=== PATIENT | female | born 1980 | race African-American/Black ===

== ENCOUNTER → 2020-01-23 | Emergency (ER) | payer MEDICAID ==
[~2020-01-23] VITALS: Ht 152.4 cm; Wt 81.6 kg
[~2020-01-23] MED LIST: POTASSIUM CHL 20 Meq TABLET PO ONE; cloNIDine HCL 0.1 MG TAB ONE; cloNIDine HCL 0.1 MG TAB PO ONE
[2020-01-23 14:46] LABS: Basophils # (auto) 0 10 ^3/uL (0-0.2); Basophils % (auto) 0.2 % (0.0-2.0); Eosinophils # (auto) 0.1 10 ^3/uL (0-0.8); Eosinophils % (auto) 1.3 % (0.0-7.0); Hematocrit 41.3 % (36.0-46.0); Lymphocytes # (auto) 1.9 10 ^3/uL (0.4-5.4); Lymphocytes % (auto) 34.2 % (10.0-50.0); Mean Corpuscular Hemoglobin 33.8 pg (28.0-32.0); Mean Corpuscular Hgb Conc. 33.9 g/dL (32.0-36.0); Mean Corpuscular Volume 99.8 fL (80.0-100.0); Monocytes # (auto) 0.4 10 ^3/uL (0-1.3); Monocytes % (auto) 7.9 % (0.0-12.0); Neutrophils # (auto) 3.2 10 ^3/uL (1.6-8.6); Neutrophils % (auto) 56.4 % (37.0-80.0); Platelet Count (auto) 312 10^3/uL (140-450); Red Blood Cells 4.14 10^6/uL (4.0-5.20); White Blood Cell 5.7 10^3/uL (4.4-10.8)
[2020-01-23 14:57] LABS: INR 0.97 (0.9-1.15); Partial Thromboplastin Time 26.6 sec (23.64-32.05)
[2020-01-23 15:05] LABS: Alanine Aminotransferase 22 U/L (13-56); Albumin 4.2 g/dL (3.4-5.0); Anion Gap 9 (5-15); Aspartate Aminotransferase 18 U/L (15-37); BUN/Creatinine Ratio 16.3; Blood Urea Nitrogen 14 mg/dL (7-18); Carbon Dioxide 23 mmol/L (21-32); Chloride 106 mmol/L (98-107); GFR African American 95 mL/min; GFR Non-African American 79 mL/min; Glucose 92 mg/dL (74-106); Magnesium 2.2 mg/dL (1.6-2.6); Potassium 3.1 mmol/L (3.5-5.1); Sodium 138 mmol/L (136-145)
[2020-01-23 15:10] LABS: Alkaline Phosphatase 99 U/L (45-117); Bilirubin, Total 0.6 mg/dL (0.2-1.0); Total Protein 9.4 g/dL (6.4-8.2)
[2020-01-23 17:56] LABS: Urine Bacteria NONE SEEN /hpf (None Seen); Urine Blood 1+ /uL (Negative); Urine Mucus FEW (None Seen); Urine Specific Gravity 1.031 (1.001-1.035); Urine WBC 1 /hpf (0 - 5)
[2020-01-23 19:04] VITALS: BP 139/94
== END | disposition home or self-care (01) ==
LOC: ER 12:56
DX: J20.9 Acute bronchitis, unspecified (principal); I10 Essential (primary) hypertension; F41.9 Anxiety disorder, unspecified; E87.6 Hypokalemia
CPT/HCPCS: 36415; 71045; 80053; 81001; 83605; 83735; 84484; 84702; 85025; 85610; 85730; 87040; 93005

== ENCOUNTER 2021-02-12 20:02 | Emergency (ER) | payer MEDICAID ==
[~2021-02-12] VITALS: Ht 152.4 cm; Wt 77.1 kg
[2021-02-12 22:54] LABS: Basophils # (auto) 0 10 ^3/uL (0-0.2); Basophils % (auto) 0.8 % (0.0-2.0); Eosinophils # (auto) 0 10 ^3/uL (0-0.8); Hematocrit 41.5 % (36.0-46.0); Hemoglobin 14.4 g/dL (12.2-16.2); Lymphocytes # (auto) 1.5 10 ^3/uL (0.4-5.4); Lymphocytes % (auto) 26.5 % (10.0-50.0); Mean Corpuscular Hemoglobin 33.9 pg (28.0-32.0); Mean Corpuscular Hgb Conc. 34.8 g/dL (32.0-36.0); Mean Corpuscular Volume 97.3 fL (80.0-100.0); Monocytes # (auto) 0.5 10 ^3/uL (0-1.3); Monocytes % (auto) 9.8 % (0.0-12.0); Neutrophils # (auto) 3.4 10 ^3/uL (1.6-8.6); Neutrophils % (auto) 62.9 % (37.0-80.0); Nucleated Red Blood Cells % 0.1 %; Red Blood Cells 4.26 10^6/uL (4.0-5.20); Red Cell Distribution Width 14.1 % (11.8-14.3); White Blood Cell 5.5 10^3/uL (4.4-10.8)
[2021-02-12 23:04] LABS: INR 0.94 (0.9-1.15)
[2021-02-12 23:07] LABS: Albumin 3.4 g/dL (3.4-5.0); Calcium 9.1 mg/dL (8.5-10.1)
[2021-02-12 23:10] LABS: BUN/Creatinine Ratio 14.9; Bilirubin, Total 0.4 mg/dL (0.2-1.0); Total Protein 8.8 g/dL (6.4-8.2)
[2021-02-13 00:28] VITALS: BP 158/99
== END 2021-02-13 03:26 | disposition home or self-care (01) ==
LOC: ER 20:02
DX: O02.1 Missed abortion (principal); Z88.8 Allergy status to other drugs, medicaments and biological substances; Z3A.08 8 weeks gestation of pregnancy
CPT/HCPCS: 36415; 76801; 80053; 84702; 85025; 85610

== ENCOUNTER 2025-03-16 06:13 | Inpatient (IN) | payer MEDICAID ==
[~2025-03-16] VITALS: Ht 152.4 cm; Wt 78.1 kg
--- NOTE | 2025-03-16 06:29 | ECG ---
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
--- NOTE | 2025-03-16 06:37 | ED.PDOC ---
History of Present Illness HPI Comments 44-year-old female presents to the ER with prior medical history of hypertension and a chief complaint of chest pain. Patient reports that the chest pain is job related associated with shortness a breath, CP, family stress. 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 Patient notes a not taking her hypertension medication but instead, is drinking tea. Social history of occasional alcohol use. Denies chills, fever, N/V/D, SOB, CP. No other associated symptoms, modifiers, recent injuries or sick contacts present at this time. Chief Complaint: Chest Pain Time Seen by MD: 06:30 Primary Care Provider: [facility] Reviewed Notes: Nurses Notes, Medications, Allergies Allergies: Coded Allergies: Acetaminophen (Verified Allergy, Unknown, 01/20/15) Hydrocodone (Verified Allergy, Unknown, 01/20/15) Information Source: Patient Mode of Arrival: Ambulatory Severity: Moderate Timing: Came on: Gradually Duration: Since onset Prehospital treatment: None Past Medical History PAST MEDICAL HISTORY: HTN (Not Taking medications but is drinking herbal tea ) Surgical History: Denies all surgeries HEAD RIGGER History: No Pertinent HEAD RIGGER History Family History Family History: Reviewed,noncontributory to illness, Unknown Social History Smoker: Non-Smoker Alcohol: Denies ETOH Use Drugs: Denies Drug Use Lives In: Home Constitutional: reports: others (Stress); denies: chills, diaphoresis, fatigue, fever, malaise, sweats, weakness EENTM: denies: blurred vision, double vision, ear bleeding, ear discharge, ear drainage, ear pain, ear ringing, eye pain, eye redness, hearing loss, mouth pain, mouth swelling, nasal discharge, nose bleeding, nose congestion, nose p ain, photophobia, tearing, throat pain, throat swelling, voice changes, others Respiratory: reports: shortness of breath; denies: cough, hemoptysis, orthopnea, SOB at rest, SOB with excertion, stridor, wheezing, others Cardiovascular: reports: chest pain; denies: dizzy spells, diaphoresis, Dyspnea on exertion, edema, irregular heart beat, left arm pain, lightheadedness, palpitations, PND, syncope, others Gastrointestinal: denies: abdomen distended, abdominal pain, blood streaked bowels, constipated, diarrhea, dysphagia, difficulty swallowing, hematemesis, melena, nausea, poor appetite, poor fluid intake, rectal bleeding, rectal pain, vomiting, others Genitourinary: denies: abnormal vagina bleeding, burning, dyspareunia, dysuria, flank pain, frequency, hematuria, incontinence, pain, , vagina discharge, urgency, others Neurological: denies: dizziness, fainting, headache, left sided numbness, left sided weakness, numbness, paresthesia, pre-existing deficit, right sided numbness, right sided weakness, seizure, speech problems, tingling, tremors, weakness, others Musculoskeletal: denies: back pain, gout, joint pain, joint swelling, muscle pain, muscle stiffness, neck pain, others Integumetry: denies: bruises, change in color, change in hair/nails, dryness, laceration, lesions, lumps, rash, wounds, others Allergic/Immunocompromised: denies: Difficulty Healing, Frequent Infections, Hives, Itching, others Hematologic/Lymphatic: denies: anemia, blood clots, easy bleeding, easy bruising, swollen glands, others Endocrine: denies: excessive hunger, excessive sweating, excessive thirst, excessive urination, flushing, intolerance to cold, intolerance to heat, unexplained weight gain, unexplained weight loss, others Psychiatric: denies: anxiety, bipolar disorder, depression, hopeless, panic disorder, schizophrenia, sleepless, suicidal, others All Other Systems: Reviewed and Negative Physical Exam General Appearance: Moderate Distress, Normal HEENT: Normal ENT Inspection, Pharynx Normal, TMs Normal Neck: Full Range of Motion, Non-Tender, Normal, Normal Inspection Respiratory: Chest Non-Tender, Lungs Clear, No Accessory Muscle Use, No Respiratory Distress, Normal Breath Sounds Cardiovascular: No Edema, No JVD, No Murmur, No Gallop, Normal Peripheral Pulses, Tachycardia Breast Exam: Deferred Gastrointestinal: No Organomegaly, Non Tender, No Pulsatile Mass, Normal Bowel Sounds, Soft Genitalia: Deferred Pelvic: Deferred Rectal: Deferred Extremities: No calf tenderness, Normal capillary refill, Normal inspection, Normal range of motion, Non-tender, No pedal edema Musculoskeletal : Apperance: Normal Neurologic: Alert, surveillance specialist II-XII nml as Tested, No Motor Deficits, Normal Affect, Normal Mood, No Sensory Deficits Cerebellar Function: Normal Reflexes: Normal Skin: Dry, Normal Color, Warm Peripheral Pulses: 3+ Radial (R), 3+ Radial (L) Lymphatic: No Adenopathy Was a procedure done? Was a procedure done?: No Differential Dx Considerations may include: Anemia Electrolyte imbalance X-Ray, Labs, Meds, VS Vital Signs Date Time Temp Pulse Resp B/P (MAP) Pulse Ox O2 Delivery O2 Flow Rate FiO2 03/16/25 06:24 100 03/16/25 06:16 98.4 110 18 192/112 97 98.4 Patient alert. Complaining of having stress at work. Vitals stable. Answering questions. She does not take any medications. Blood pressure elevated. She was supposed to take blood pressure medication but has not been. No leg swelling. No shortness a breath. EKG reviewed does not show any acute process. Explained to the patient. Continue monitoring. Time of 1ST Reevaluation: 07:00 Reevaluation 1ST: Unchanged Patient Education/Counseling: Diagnosis, Treatment, Prognosis Family Education/Counseling: No Family Present SEPSIS Sepsis Screen Date sepsis recognized/suspect: Mar 16, 2025 Time Sepsis recognized/suspect: 624 Recent Procedure: No On Antibiotic Therapy: No Respiratory Rate >20: No Heart Rate >90: No Temp<36 C (96.8 F) or >38.3 C: No SBP <90 or MAP <65 mmHG: No New Acute Mental Status Change: No Is the patient on CPAP, BIPAP,: No Physician Orders Complete Blood Count (03/16/25 06:30) Urinalysis (03/16/25 06:30) Troponin-I Hs (03/16/25 06:30) Troponin-I Hs (03/16/25 07:30) Troponin-I Hs (03/16/25 09:30) Basic Metabolic Panel (03/16/25 06:30) Vital Signs Date Time Temp Pulse Resp B/P (MAP) Pulse Ox O2 Delivery O2 Flow Rate FiO2 03/16/25 06:24 100 03/16/25 06:16 98.4 110 18 192/112 97 98.4 Departure 1 Departure Time of Disposition: 06:43 Impression: Primary Impression: Hypertensive emergency Additional Impression: Chest pain of unknown etiology Disposition: ADMITTED INPATIENT Admit to: Med Surg Condition: Guarded Critical Care Note Critical Care Time?: Yes (90 min-critical care time only) Stability Stability form required: No Heart Score Heart Score: Heart Score Response (Comments) Value History Slightly Suspicious 0 EKG Normal 0 Age <45 0 Risk Factors 1 or 2 risk factors 1 Troponin Normal limit 0 Total 1 I personally scribed for ED CORNELIUS MD ([email or web address]) on 03/16/25 at 06:37. Electronically submitted by Andrew Botello ([email or web address]). ED CORNELIUS MD Mar 16, 2025 06:37
[2025-03-16 07:08] LABS: Mean Corpuscular Hemoglobin 35.0 pg (28.0-32.0)
[2025-03-16 07:10] LABS: Hematocrit 38.3 % (36.0-46.0); Hemoglobin 13.6 g/dL (12.2-16.2); Mean Corpuscular Volume 98.8 fL (80.0-100.0); Nucleated Red Blood Cells % 0.0 %
[2025-03-16 07:25] LABS: Chloride 104 mmol/L (98-107); Potassium 3.7 mmol/L (3.5-5.1); Sodium 138 mmol/L (136-145)
[2025-03-16 07:27] LABS: Anion Gap 11 (5-15); Calcium 9.2 mg/dL (8.7-10.4); Carbon Dioxide 23 mmol/L (20-31)
[2025-03-16 07:32] LABS: BUN/Creatinine Ratio 11.4 (10.0-20.0); Blood Urea Nitrogen 10 mg/dL (9-23); Glucose 95 mg/dL (74-106)
[2025-03-16] MEDS: LORazepam 0.5 MG TAB PO ONE (08:32)
[2025-03-16] MEDS ORDERED: NITROGLYCERIN 0.4 MG SL TAB SL PRN (10:15)
[2025-03-16] MEDS ORDERED: ACETAMINOPHEN 325 MG TAB PO PRN (10:15)
[2025-03-16] MEDS ORDERED: MORPHINE SULFATE INJ 2 MG/ml SYRG IV PRN (10:15)
[2025-03-16 10:17] VITALS: PULSE 83; RESP 17; O2SAT 97
--- NOTE | 2025-03-16 11:43 | DVHHP2 ---
History of Present Illness Reason for Visit: Chest pain likely due to uncontrolled hypertension History of Present Illness This is a 44-year-old female with history of hypertension currently not taking any medications presents to ED with chief complaint of chest pain associated with shortness of breaths. Upon evaluation patient denies chest pain at the moment but does report two week of intermittent chest pain that resolves on its own. She states intermittent radiation down left arm and feeling increased tiredness. She does report increased stress at work and believes that has contributed to her symptoms. She denies illicit drug use, energy drinks consumption and recent injury or trauma to her chest. Patient notes having history of hypertension but does not take any medication for this but has been drinking herbal tea as an alternative. She is here as she is concerned about her symptoms and would like to be further evaluated and treated. The patient will be admitted under hospitalist care to the telemetry unit for continuous monitoring. The patient denies fever, chills, headache, dizziness, palpitation, nausea, vomiting, abdominal pain, diarrhea, constipation and other associated symptoms. The plan has been discussed with the patient in which all questions concerns have been addressed. Cardiovascular: HTN Past Surgical History: None Family History: None Smoke: No ALCOHOL: none Drugs: None Lives: with Family Domestic Violence: Neg Review of Systems Constitutional: Yes: Weakness Cardiovascular: Chest Pain Allergies: Coded Allergies: Acetaminophen (Verified Allergy, Unknown, 01/20/15) Hydrocodone (Verified Allergy, Unknown, 01/20/15) Medications Current Medications Medications Dose Ordered Sig/Kandy Route Start Time Stop Time Status Last Admin Dose Admin Aspirin 81 mg DAILY PO 03/17/25 10:00 Hydralazine HCl 10 mg Q6HP PRN IV 03/16/25 10:15 Acetaminophen 650 mg Q6HP PRN PO 03/16/25 10:15 Hold Nitroglycerin 0.4 mg Q5MINP PRN SL 03/16/25 10:15 Morphine Sulfate 2 mg Q30M PRN IV 03/16/25 10:15 Exam Vital Signs Vital Signs Date Time Temp Pulse Resp B/P (MAP) Pulse Ox O2 Delivery O2 Flow Rate FiO2 03/16/25 10:40 133/73 03/16/25 10:21 97 Room Air* 0 21 03/16/25 10:17 83 17 03/16/25 08:35 98.0 98.0 General Appearance: Alert, Oriented X3, Cooperative, No acute distress HEENT: Atraumatic, PERRLA, Mucous membr. moist/pink Respiratory: Clear to auscultation, Normal air movement Cardiovascular: Regular rate, Normal S1, Normal S2, No murmurs Abdominal: Normal bowel sounds, Soft, No tenderness, No hepatospenomegaly Extremities: No clubbing, No cyanosis, No edema, Normal pulses, No tenderness/swelling Skin: No rashes, No breakdown Neuro: Normal gait, Normal speech, Strength at 5/5 X4 ext, Normal tone, Sensation intact, Cranial nerves 3-12 NL Psych/Mental Status: Mental status NL, Mood NL Labs/Xrays Labs Test 03/16/25 09:45 03/16/25 06:45 Range/Units Troponin I High Sensitivity 24 </=34 ng/L White Blood Count 7.2 4.4-10.8 10^3/uL Red Blood Count 3.88 L 4.0-5.20 10^6/uL Hemoglobin 13.6 12.2-16.2 g/dL Hematocrit 38.3 36.0-46.0 % Mean Corpuscular Volume 98.8 80.0-100.0 fL Mean Corpuscular Hemoglobin 35.0 H 28.0-32.0 pg Mean Corpuscular Hemoglobin Concent 35.4 32.0-36.0 g/dL Red Cell Distribution Width 13.4 11.8-14.3 % Platelet Count 249 140-450 10^3/uL Mean Platelet Volume 9.9 6.9-10.8 fL Neutrophils (%) (Auto) 54.9 37.0-80.0 % Lymphocytes (%) (Auto) 35.1 10.0-50.0 % Monocytes (%) (Auto) 8.3 0.0-12.0 % Eosinophils (%) (Auto) 1.3 0.0-7.0 % Basophils (%) (Auto) 0.4 0.0-2.0 % Neutrophils # (Auto) 4.0 1.6-8.6 10 ^3/uL Lymphocytes # (Auto) 2.5 0.4-5.4 10 ^3/uL Monocytes # (Auto) 0.6 0-1.3 10 ^3/uL Eosinophils # (Auto) 0.1 0-0.8 10 ^3/uL Basophils # (Auto) 0 0-0.2 10 ^3/uL Nucleated Red Blood Cells 0.0 % Sodium Level 138 136-145 mmol/L Potassium Level 3.7 3.5-5.1 mmol/L Chloride Level 104 98-107 mmol/L Carbon Dioxide Level 23 20-31 mmol/L Anion Gap 11 5-15 Blood Urea Nitrogen 10 9-23 mg/dL Creatinine 0.88 0.550-1.02 mg/dL Glomerular Filtration Rate Calc 84 >90 mL/min BUN/Creatinine Ratio 11.4 10.0-20.0 Serum Glucose 95 74-106 mg/dL Calcium Level 9.2 8.7-10.4 mg/dL SEPSIS Sepsis Screen Date sepsis recognized/suspect: Mar 16, 2025 Time Sepsis recognized/suspect: 1020 Recent Procedure: No On Antibiotic Therapy: No Respiratory Rate >20: No Heart Rate >90: No Temp<36 C (96.8 F) or >38.3 C: No SBP <90 or MAP <65 mmHG: No New Acute Mental Status Change: No Is the patient on CPAP, BIPAP,: No Physician Orders Urinalysis (03/16/25 06:30) Troponin-I Hs (03/16/25 07:30) Aspirin Tablet (03/17/25 10:00) Hydralazine Injection (Apresoline Inject (03/16/25 10:15) Admit (03/16/25 10:11) 2 Gm Sodium Diet (03/16/25 Lunch) Complete Blood Count (03/17/25 04:00) Comprehensive Metabolic Panel (03/17/25 04:00) Condition: Fair (03/16/25 10:11) Acetaminophen Tablet (Tylenol Tablet) (03/16/25 10:15) BRP (03/16/25 10:11) Nitroglycerin Sublingual (Ntrostat Subli (03/16/25 10:15) Morphine Sulfate Injection (03/16/25 10:15) Stat Ekg For Chest Pain (03/16/25 10:11) Notify Md Of Changes From Base (03/16/25 10:11) Zone Maintenance Technician For 24 Hours (03/16/25 10:11) Emergency Dysrhythmia Protocol (03/16/25 10:11) Rhythm Strips Once Every Shift (03/16/25 10:11) Oxygen By Nasal Cannula (03/16/25 10:11) Pharmacy Clarification: (03/16/25 11:02) Vital Signs Date Time Temp Pulse Resp B/P (MAP) Pulse Ox O2 Delivery O2 Flow Rate FiO2 03/16/25 10:40 133/73 03/16/25 10:21 97 Room Air* 0 21 03/16/25 10:17 83 17 97 Room Air* 0 21 03/16/25 10:15 83 17 133/73 (93) 98 03/16/25 08:35 98.0 81 20 185/115 (138) 98 98.0 03/16/25 08:32 185/115 03/16/25 07:28 84 03/16/25 06:24 100 03/16/25 06:16 98.4 110 18 192/112 97 98.4 Laboratory Tests Test 03/16/25 06:45 White Blood Count 7.2 10^3/uL (4.4-10.8) Medications Medications Dose Ordered Sig/Kandy Route Start Time Stop Time Status Last Admin Dose Admin Aspirin 325 mg ONCE ONCE PO 03/16/25 06:30 03/16/25 06:31 DC 03/16/25 08:31 325 MG Clonidine HCl 0.2 mg ONCE ONCE PO 03/16/25 06:45 03/16/25 06:46 DC 03/16/25 08:32 0.2 MG Lorazepam 2 mg ONCE ONCE PO 03/16/25 06:30 03/16/25 06:31 DC 03/16/25 08:32 2 MG Assessment/Plan Assessment/Plan Chest pain likely due to uncontrolled hypertension--patient presents to ED with complaint of chest pain associated with shortness of breaths Intermittent chest pain x2 weeks associated with numbness and tingling down left arm and increased tiredness Patient states increased work stress, denies illicit drug use, denies consumption of energy drinks and recent injury/trauma to chest History of hypertension currently not taking any medication but takes herbal tea instead No previous cardiac workup Admit to telemetry unit ACS protocol if needed Reviewed CBC which is normal Reviewed BMP which is normal Cardiac enzyme negative x1 pending 2nd and 3rd result Patient was given aspirin and clonidine in the ER Echocardiogram pending Consider to consult finish production manager if further evaluation and recommendation are needed Uncontrolled hypertension Start JOSELITO inhibitor lisinopril 5 mg daily Hydralazine 10 mg IV push q.6 p.r.n. SBP greater than 150 mmHg Continue to monitor Reconcile home meds DVT prophylaxis not indicated patient ambulatory PUD prophylaxis not indicated no history of GERD Labs in a.m. Discussed plan of care with the patient and daughter in which all questions concerns have been addressed Plan discussed with: Patient, Daughter My Orders Orders - MEGA JOE Procedure Category Date Status Time Aspirin Tablet PHA 03/17/25 In Process 10:00 Hydralazine Injection PHA 03/16/25 In Process (Apresoline Inject 10:15 Admit ADMIT 03/16/25 Transmitted 10:11 2 Gm Sodium Diet DIET 03/16/25 Transmitted Lunch Complete Blood Count LAB 03/17/25 Verified 04:00 Comprehensive LAB 03/17/25 Verified Metabolic Panel 04:00 Condition: Fair J CARLOS 03/16/25 In Process 10:11 Acetaminophen Tablet PHA 03/16/25 In Process (Tylenol Tablet) 10:15 BRP J CARLOS 03/16/25 In Process 10:11 Nitroglycerin PHA 03/16/25 In Process Sublingual (Ntrostat 10:15 Morphine Sulfate PHA 03/16/25 In Process Injection 10:15 Stat Ekg For Chest [facility] 03/16/25 In Process Pain 10:11 Notify Md Of Changes [facility] 03/16/25 In Process From Base 10:11 Zone Maintenance Technician For [facility] 03/16/25 In Process 24 Hours 10:11 Emergency Dysrhythmia [facility] 03/16/25 In Process Protocol 10:11 Rhythm Strips Once [facility] 03/16/25 In Process Every Shift 10:11 Oxygen By Nasal RT 03/16/25 Transmitted Cannula 10:11 Pharmacy [facility] 03/16/25 In Process Clarification: 11:02 Date of Service: Mar 16, 2025 Billing Provider: MEGA JOE Common Visit Codes: [id number] INP/OBS CARE (HIGH) MEGA JOE Mar 16, 2025 11:42
[2025-03-16 12:56] VITALS: BP 139/99; PULSE 75; RESP 18; TEMP 97.8; O2SAT 99
[2025-03-16 13:15] VITALS: BP 139/99; PULSE 75; RESP 18; TEMP 97.8; O2SAT 99
[2025-03-16 17:00] VITALS: BP 125/85; PULSE 77; RESP 18; TEMP 98.2; O2SAT 98
[2025-03-16 20:00] VITALS: PULSE 72; PULSE 84; RESP 17; O2SAT 98
[2025-03-16 21:00] VITALS: BP 146/94; PULSE 76; RESP 16; TEMP 98.3; O2SAT 99
[2025-03-17 01:00] VITALS: BP 146/100; PULSE 78; RESP 16; TEMP 98; O2SAT 100
[2025-03-17 05:00] VITALS: BP 153/104; PULSE 73; RESP 16; TEMP 98; O2SAT 99
[2025-03-17 07:47] LABS: Hematocrit 36.4 % (36.0-46.0); Hemoglobin 12.9 g/dL (12.2-16.2); Mean Corpuscular Hemoglobin 35.0 pg (28.0-32.0); Mean Corpuscular Volume 99.3 fL (80.0-100.0); Nucleated Red Blood Cells % 0.0 %
[2025-03-17 08:07] LABS: Alanine Aminotransferase 22 U/L (7-40); Albumin 4.3 g/dL (3.2-4.8); Alkaline Phosphatase 76 U/L (46-116); Anion Gap 7 (5-15); BUN/Creatinine Ratio 14.4 (10.0-20.0); Blood Urea Nitrogen 14 mg/dL (9-23); Calcium 9.3 mg/dL (8.7-10.4); Carbon Dioxide 23 mmol/L (20-31); Glucose 89 mg/dL (74-106); Potassium 4.0 mmol/L (3.5-5.1); Sodium 139 mmol/L (136-145); Total Protein 7.3 g/dL (5.7-8.2)
[2025-03-17 08:08] LABS: Bilirubin, Total 0.5 mg/dL (0.2-1.0)
[2025-03-17 08:10] LABS: Chloride 109 mmol/L (98-107)
[2025-03-17 08:14] VITALS: PULSE 68
[2025-03-17] MEDS: LISINOPRIL 5 MG TAB PO SCH (08:50)
[2025-03-17 08:53] VITALS: BP 158/101; PULSE 73; RESP 16; TEMP 98.2; O2SAT 99
[2025-03-17] MEDS: hydrALAZINE HCL 20 MG/ML VL IV PRN (11:00)
--- NOTE | 2025-03-21 14:11 | ECG ---
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
== END 2025-03-17 11:51 | disposition left against medical advice (07) | DRG 199 ==
LOC: ER 06:13 → OVERFLOW 10:11 → TELE-WESTW 12:53
PROVIDERS: ADMIT Nurse Practitioner Family; ATTEND Nurse Practitioner Family
DX: I16.0 Hypertensive urgency (principal); Z53.29 Procedure and treatment not carried out because of patient's decision for other reasons; Z79.899 Other long term (current) drug therapy; Z88.6 Allergy status to analgesic agent; Z88.5 Allergy status to narcotic agent
CPT/HCPCS: 36415; 80048; 80053; 84484; 85025; 93005; 99291; G0378

== ENCOUNTER 2025-06-24 08:39 | Emergency (ER) | payer MEDICAID ==
[~2025-06-24] VITALS: Ht 157.5 cm; Wt 75.3 kg
--- NOTE | 2025-06-24 09:32 | ED.PDOC ---
General HPI Comments 44 year old female with PMHx HTN presents to the ED with a chief complaint of pelvic pain onset 1 weeks. She has been experiencing pelvic pain for the past week as well as urinary urgency. Upon ED arrival BP was 198/145, has not taken BP medication, amlodipine. For the past week, she has been experiencing dry cough, LT ear pain, diarrhea for 2 days, now resolved, began experiencing nausea/vomiting last night. Denies dysuria, hematuria, constipation, melena, rectal bleeding, headache, dizziness, fever, chills vaginal discharge. No other symptoms or modifying factors present at this time. Chief Complaint: Urinary Time Seen by MD: 09:20 Primary Care Provider: [facility] Reviewed notes: Medications, Allergies Allergies: Coded Allergies: Acetaminophen (Verified Allergy, Unknown, 01/20/15) Hydrocodone (Verified Allergy, Unknown, 01/20/15) Information Source: Patient Mode of Arrival: Ambulatory Severity: Moderate Timing: Weeks Duration: Since onset Prehospital treatment: None Onset: Spontaneous Symptoms: Urgency History of: None Location: Suprapubic Modifying factors: None associated signs and symptoms: Nausea, Vomiting, Urgency Past Medical History PAST MEDICAL HISTORY: HTN Surgical History: Denies all surgeries MONUMENT SETTER History: No Pertinent MONUMENT SETTER History Family History Family History: Reviewed,noncontributory to illness, Unknown Social History Smoker: Non-Smoker Alcohol: Denies ETOH Use Drugs: Denies Drug Use Lives In: Home Constitutional: denies: chills, diaphoresis, fatigue, fever, malaise, sweats, weakness, others EENTM: reports: ear pain (LT); denies: blurred vision, double vision, ear bleeding, ear discharge, ear drainage, ear ringing, eye pain, eye redness, hearing loss, mouth pain, mouth swelling, nasal discharge, nose bleeding, nose congestion, nose pain, photophobia, tearing, throat pain, throat swelling, voice changes, others Respiratory: reports: cough; denies: hemoptysis, orthopnea, SOB at rest, shortness of breath, SOB with excertion, stridor, wheezing, others Cardiovascular: denies: chest pain, dizzy spells, diaphoresis, Dyspnea on exertion, edema, irregular heart beat, left arm pain, lightheadedness, palpitations, PND, syncope, others Gastrointestinal: reports: nausea, vomiting; denies: abdomen distended, abdominal pain, blood streaked bowels, constipated, diarrhea, dysphagia, difficulty swallowing, hematemesis, melena, poor appetite, poor fluid intake, rectal bleeding, rectal pain, others Genitourinary: reports: pain (pelvic), urgency; denies: abnormal vagina bleeding, burning, dyspareunia, dysuria, flank pain, frequency, hematuria, incontinence, , vagina discharge, others Neurological: denies: dizziness, fainting, headache, left sided numbness, left sided weakness, numbness, paresthesia, pre-existing deficit, right sided numbnes s, right sided weakness, seizure, speech problems, tingling, tremors, weakness, others Musculoskeletal: denies: back pain, gout, joint pain, joint swelling, muscle pain, muscle stiffness, neck pain, others Integumetry: denies: bruises, change in color, change in hair/nails, dryness, laceration, lesions, lumps, rash, wounds, others Allergic/Immunocompromised: denies: Difficulty Healing, Frequent Infections, Hives, Itching, others Hematologic/Lymphatic: denies: anemia, blood clots, easy bleeding, easy bruising, swollen glands, others Endocrine: denies: excessive hunger, excessive sweating, excessive thirst, excessive urination, flushing, intolerance to cold, intolerance to heat, unexplained weight gain, unexplained weight loss, others Psychiatric: denies: anxiety, bipolar disorder, depression, hopeless, panic disorder, schizophrenia, sleepless, suicidal, others All Other Systems: Reviewed and Negative Physical Exam General Appearance: Normal HEENT: Normal ENT Inspection, Pharynx Normal, TMs Normal Neck: Full Range of Motion, Non-Tender, Normal, Normal Inspection Respiratory: Chest Non-Tender, Lungs Clear, No Accessory Muscle Use, No Respi ratory Distress, Normal Breath Sounds Cardiovascular: No Edema, No JVD, No Murmur, No Gallop, Normal Peripheral Pulses, Regular Rate/Rhythm Breast Exam: Deferred Gastrointestinal: No Organomegaly, Non Tender, No Pulsatile Mass, Normal Bowel Sounds, Soft Genitalia: Deferred Pelvic: Deferred Rectal: Deferred Extremities: No calf tenderness, Normal capillary refill, Normal inspection, Normal range of motion, Non-tender, No pedal edema Musculoskeletal : Apperance: Normal Neurologic: Alert, hotel server II-XII nml as Tested, No Motor Deficits, Normal Affect, Normal Mood, No Sensory Deficits Cerebellar Function: Normal Reflexes: Normal Skin: Dry, Normal Color, Warm Lymphatic: No Adenopathy Was a procedure done? Was a procedure done?: No Differential Diagnosis Kidney stone (Female): N/A Urinary Problem (Female): Pyelonephritis, Urinary retention, UTI X-Ray, Labs, Meds, VS Vital Signs Date Time Temp Pulse Resp B/P (MAP) Pulse Ox O2 Delivery O2 Flow Rate FiO2 06/24/25 10:36 98.1 91 18 195/127 (149) 100 98.1 06/24/25 08:42 98.6 74 12 198/145 98 98.6 Lab Test 06/24/25 10:07 06/24/25 09:45 Range/Units Urine Color Colorless Yellow Urine Clarity Clear Clear Urine pH 7.0 5.0-9.0 Urine Specific [place] 1.012 1.001-1.035 Urine Protein Negative Negative Urine Ketones Negative Negative Urine Blood Trace H Negative /uL Urine Nitrite Negative Negative Urine Bilirubin Negative Negative Urine Urobilinogen Normal Negative mg/dL Urine Leukocyte Esterase Negative Negative /uL Urine RBC 2 0 - 4 /hpf Urine Microscopic WBC < 1 0-5 /HPF Urine Squamous Epithelial Cells Few <5 /hpf Urine Bacteria None seen None Seen /hpf Urine Glucose Normal Normal mg/dL White Blood Count 7.3 4.4-10.8 10^3/uL Red Blood Count 4.04 4.0-5.20 10^6/uL Hemoglobin 13.6 12.2-16.2 g/dL Hematocrit 39.5 36.0-46.0 % Mean Corpuscular Volume 97.8 80.0-100.0 fL Mean Corpuscular Hemoglobin 33.6 H 28.0-32.0 pg Mean Corpuscular Hemoglobin Concent 34.3 32.0-36.0 g/dL Red Cell Distribution Width 14.4 H 11.8-14.3 % Platelet Count 331 140-450 10^3/uL Mean Platelet Volume 9.8 6.9-10.8 fL Neutrophils (%) (Auto) 62.9 37.0-80.0 % Lymphocytes (%) (Auto) 27.7 10.0-50.0 % Monocytes (%) (Auto) 6.8 0.0-12.0 % Eosinophils (%) (Auto) 1.5 0.0-7.0 % Basophils (%) (Auto) 1.1 0.0-2.0 % Neutrophils # (Auto) 4.6 1.6-8.6 10 ^3/uL Lymphocytes # (Auto) 2.0 0.4-5.4 10 ^3/uL Monocytes # (Auto) 0.5 0-1.3 10 ^3/uL Eosinophils # (Auto) 0.1 0-0.8 10 ^3/uL Basophils # (Auto) 0.1 0-0.2 10 ^3/uL Nucleated Red Blood Cells 0.1 % Sodium Level 139 136-145 mmol/L Potassium Level 3.5 3.5-5.1 mmol/L Chloride Level 103 98-107 mmol/L Carbon Dioxide Level 25 20-31 mmol/L Anion Gap 11 5-15 Blood Urea Nitrogen 7 L 9-23 mg/dL Creatinine 0.84 0.550-1.02 mg/dL Glomerular Filtration Rate Calc 89 >90 mL/min BUN/Creatinine Ratio 8.3 L 10.0-20.0 Serum Glucose 96 74-106 mg/dL Calcium Level 9.8 8.7-10.4 mg/dL [place] [id number] Ph: [phone] DIAGNOSTIC IMAGING Diagnostic Imaging Report : [id number] Signed PATIENT: YONI FARRELLT: [id number] UNIT: [id number] : 1980 LOC: ER ROOM / BED: / AGE / SEX: 44 / F ADM STATUS: REG ER SERVICE [id number] ORDERING PHYSICIAN: ROSELIA AGRAWAL MD PROCEDURE(s): CXRP - CHEST PORTABLE REASON: sob ORDER NUMBER(s): [id number], ACCESSION NUMBER(s): [id number] INDICATION: sob TECHNIQUE: Frontal view of the chest. COMPARISON: None FINDINGS/IMPRESSION: The lungs are clear. The cardiomediastinal silhouette is unremarkable. No pleural effusion or pneumothorax. No acute osseous abnormality. ATED BY: TANNA VOGT MD DICTATED DATE/TIME: 06/24/25 1006 SIGNED BY: TANNA VOGT MD SIGNED DATE/TIME: 06/24/25 1006 CC: Time of 1ST Reevaluation: 09:50 Reevaluation 1ST: Unchanged Patient Education/Counseling: Diagnosis, Treatment, Prognosis Family Education/Counseling: No Family Present SEPSIS Sepsis Screen Date sepsis recognized/suspect: Jun 24, 2025 Time Sepsis recognized/suspect: 0845 Recent Procedure: No On Antibiotic Therapy: No Respiratory Rate >20: No Heart Rate >90: No Temp<36 C (96.8 F) or >38.3 C: No SBP <90 or MAP <65 mmHG: No New Acute Mental Status Change: No Is the patient on CPAP, BIPAP,: No Physician Orders Chest Portable (06/24/25 09:34) Troponin-I Hs (06/24/25 10:49) Electrocardigram (06/24/25 10:49) Troponin-I Hs (06/24/25 11:49) Troponin-I Hs (06/24/25 13:49) Electrocardigram (06/24/25 11:49) Electrocardigram (06/24/25 13:49) Vital Signs Date Time Temp Pulse Resp B/P (MAP) Pulse Ox O2 Delivery O2 Flow Rate FiO2 06/24/25 10:36 98.1 91 18 195/127 (149) 100 98.1 06/24/25 08:42 98.6 74 12 198/145 98 98.6 Laboratory Tests Test 06/24/25 09:45 White Blood Count 7.3 10^3/uL (4.4-10.8) Departure 1 Departure Time of Disposition: 11:22 (Patient's workup is benign. Patient likely has a viral syndrome. Patient refusing any intervention for blood pressure. Patient took her home blood pressure medication while here. Patient requesting discharge home.) Impression: Primary Impression: Viral syndrome Disposition: HOME / SELF CARE / HOMELESS Condition: Stable Additional Instructions: You likely have a viral illness. It is important to stay well rested and well hydrated. You can take Tylenol and Motrin as needed for pain and fever. For a sore throat you can drink warm tea with honey. You can take [id number] pseudoephedrine for nasal congestion. He should follow up with your regular doctor within 1 week to ensure you are doing better. If your symptoms worsen or you have any other concerns please return to the emergency room. Discharged With: Self Critical Care Note Critical Care Time?: No Stability Stability form required: No Heart Score Heart Score: Heart Score Response (Comments) Value History N/A 0 EKG N/A 0 Age N/A 0 Risk Factors N/A 0 Troponin N/A 0 Total 0 I personally scribed for ROSELIA AGRAWAL MD ([email or web address]) on 06/24/25 at 09:32. Electronically submitted by Denice Enamorado ([email or web address]). I personally scribed for ROSELIA AGRAWAL MD ([email or web address]) on 06/24/25 at 10:24. Electronically submitted by Denice Enamorado ([email or web address]). ROSELIA AGRAWAL MD Jun 24, 2025 09:32
--- NOTE | 2025-06-24 10:09 | DVH ---
INDICATION: sob TECHNIQUE: Frontal view of the chest. COMPARISON: None FINDINGS/IMPRESSION: The lungs are clear. The cardiomediastinal silhouette is unremarkable. No pleural effusion or pneumothorax. No acute osseous abnormality.
[2025-06-24 10:16] LABS: Hematocrit 39.5 % (36.0-46.0); Hemoglobin 13.6 g/dL (12.2-16.2); Mean Corpuscular Hemoglobin 33.6 pg (28.0-32.0); Mean Corpuscular Volume 97.8 fL (80.0-100.0); Nucleated Red Blood Cells % 0.1 %
[2025-06-24 10:19] LABS: Urine Protein, UAD Negative (Negative)
[2025-06-24 10:30] LABS: Chloride 103 mmol/L (98-107); Sodium 139 mmol/L (136-145)
[2025-06-24 10:31] LABS: Anion Gap 11 (5-15); Calcium 9.8 mg/dL (8.7-10.4); Carbon Dioxide 25 mmol/L (20-31)
[2025-06-24 10:34] LABS: Potassium 3.5 mmol/L (3.5-5.1)
[2025-06-24 10:36] LABS: BUN/Creatinine Ratio 8.3 (10.0-20.0); Blood Urea Nitrogen 7 mg/dL (9-23); Glucose 96 mg/dL (74-106)
[2025-06-24 11:35] VITALS: BP 207/130; PULSE 97; RESP 16; TEMP 97.6; O2SAT 100
== END 2025-06-24 11:38 | disposition home or self-care (01) ==
LOC: ER 08:39
DX: B34.9 Viral infection, unspecified (principal); I10 Essential (primary) hypertension; Z88.5 Allergy status to narcotic agent
CPT/HCPCS: 36415; 71045; 80048; 81001; 85025